=== PATIENT | male | born 1980 | race Caucasian/White ===

== ENCOUNTER 2025-03-30 11:49 | Emergency (ER) | payer OTHER ==
[2025-03-30 12:33] LABS: #Basophils 0.06 10x3/uL (0.0-0.2); #Eosinophils 0.22 10x3/uL (0.0-0.7); #Monocytes 0.64 10x3/uL (0.11-0.59); #Neutrophils 4.43 10x3/uL (1.40-6.50); %Basophils 0.9 % (0.0-1.0); %Eosinophils 3.2 % (0.0-10.0); %Lymphocytes 22.9 % (21.0-51.0); %Monocytes 9.2 % (0.0-10.0); %Neutrophils 63.4 % (42.0-75.0); Hematocrit 44.7 % (42.0-52.0); Hemoglobin 15.2 g/dL (14.0-18.0); Mean Corpuscular Hemoglobin 32.2 pg (27.0-31.0); Mean Corpuscular Volume 94.7 fL (78.0-98.0); Platelet Count 177 10x3/uL (130-400); Red Blood Cell (RBC) Count 4.72 mill/uL (4.70-6.10); White Blood Cell (WBC) Count 6.98 10x3/uL (4.8-10.8)
[2025-03-30 13:00] LABS: ALT (SGPT) 20 U/L (Less than 45); AST (SGOT) 22 U/L (11-34); Albumin 4.5 g/dL (3.1-4.5); Alkaline Phosphatase 72 U/L (40-110); Anion Gap 15 mmol/L (10-20); BUN (Urea Nitrogen) 13 mg/dL (8.9-20.6); Bilirubin, Total 1.2 mg/dL (0.3-1.2); Calc. Creatinine Clearance 0 mL/min (70-130); Calcium 9.6 mg/dL (7.8-10.44); Carbon Dioxide 27 mmol/L (22-29); Chloride 105 mmol/L (98-107); Globulin 3.2 g/dL (2.4-3.5); Glucose 92 mg/dL (70-105); Potassium 4.1 mmol/L (3.5-5.1); Sodium 143 mmol/L (136-145)
== END 2025-03-30 14:40 | disposition home or self-care (01) ==
LOC: EEVIPCON 11:49 → ERS 11:49
DX: R07.89 Other chest pain (principal); K92.1 Melena; Z86.711 Personal history of pulmonary embolism; Z86.718 Personal history of other venous thrombosis and embolism; Z87.891 Personal history of nicotine dependence; Z79.01 Long term (current) use of anticoagulants
CPT/HCPCS: 36415; 71045; 80053; 85025; 86850; 86900; 86901; 93005